=== PATIENT | female | born 1995 | race Caucasian/White ===

== ENCOUNTER 2022-03-21 06:39 | Emergency (ER) | payer MEDICAID ==
[~2022-03-21] VITALS: Ht 170.2 cm; Wt 108.9 kg
[2022-03-21 06:45] VITALS: BP_SYST 142
--- NOTE | 2022-03-21 06:48 | NUR ---
Patient ambulated to bed 3 & connected to CM with CC sharp constant CP radiating to posterior neck since 0100 this am. Patient connected to CM.
--- NOTE | 2022-03-21 07:30 | NUR ---
RECEIVED PT FROM [facility]. PT BIB FRIEND WITH C/O C/P. EKG OBTAINED BY PRIOR SHIFT SHOWS NSR. PT STATES C/P IS 5/10 AT THIS TIME AND STATES SHE HAS RIGHT ARM NUMBNESS. PT IS AAOX4. ON R/A. DENIES N/V/D/C. SKIN WARM, INTACT, NO EDEMA. PERIPHERAL PULSES NORMAL. PT HAS RAC 20G IN PLACE, BLOOD DRAWN BY NOC SHIFT RN AND TAKEN TO LAB. MADE AWARE PAIN MEDICATION IS NEEDED. SIDERAILS UP X2.
[2022-03-21 07:31] LABS: BASOPHILS % (AUTO) 0.7 % (0.0-2.0); EOSINOPHILS % (AUTO) 0.4 % (0.0-4.0); HEMATOCRIT 38.1 % (36-48); HEMOGLOBIN 13.3 g/dL (12.0-16.0); LYMPHOCYTES # (AUTO) 2.7 K/uL (1.0-5.5); LYMPHOCYTES % (AUTO) 37.6 % (20.5-51.5); MEAN CORPUSCULAR HEMOGLOBIN 30 pg (27-31); MEAN CORPUSCULAR HGB CONC 35 % (32-36); MEAN CORPUSCULAR VOLUME 85 fL (79.0-98.0); MONOCYTES # (AUTO) 0.4 K/uL (0.0-1.0); MONOCYTES % (AUTO) 5.8 % (1.7-9.3); NEUTROPHILS % (AUTO) 55.5 % (40.0-70.0); PLATELET COUNT (AUTO) 238 K/uL (130-430); RED BLOOD CELL COUNT(AUTO) 4.49 MIL/uL (4.2-6.2); RED CELL DISTRIBUTION WIDTH 12.8 % (9.0-15.0); WHITE BLOOD COUNT (AUTO) 7.1 K/uL (4.8-10.8)
[2022-03-21 07:42] LABS: ANION GAP 7 (5-15); CALCIUM 9.3 mg/dL (8.4-11.0); CHLORIDE 105 mmol/L (98-107); CREATININE 0.72 mg/dL (0.55-1.30); GLUCOSE 94 mg/dL (70-99); UREA NITROGEN, BLOOD 13 mg/dL (8-21)
[2022-03-21] MEDS ORDERED: MORPHINE 4 MG INJ. 4 MG/ML VIAL IVP ONE (07:45)
[2022-03-21 07:51] LABS: ALANINE AMINOTRANSFERASE 16 U/L (12-78); ALBUMIN 3.4 g/dL (3.4-4.8); ASPARTATE AMINOTRANSFERASE 17 U/L (10-37); TOTAL BILIRUBIN 0.3 mg/dL (0.0-1.0)
[2022-03-21 07:57] LABS: GFR AFRICAN AMERICAN 125 mL/min (>90)
--- NOTE | 2022-03-21 08:21 | NUR ---
PT HAS C/O C/P 11/11. MORPHINE 4MG IVP GIVEN. PT REPOSITIONED FOR COMFORT.
[2022-03-21 11:13] VITALS: BP_SYST 99
--- NOTE | 2022-03-21 11:14 | NUR ---
Patient given written and verbal discharge instructions and verbalizes understanding. ER MD discussed with patient the results and treatment provided. Patient in stable condition. ID arm band removed. IV catheter removed intact and dressing applied, no active bleeding. Patient educated on pain management and to follow up with PMD. Pain Scale O/10. Opportunity for questions provided and answered. Medication side effect fact sheet provided.
== END 2022-03-21 10:53 | disposition home or self-care (01) ==
LOC: SED 06:39
DX: R07.9 Chest pain, unspecified (principal); R20.2 Paresthesia of skin; R06.02 Shortness of breath; Z79.899 Other long term (current) drug therapy
CPT/HCPCS: 99284; 96374; 80053; 83880; 85025; 84484; 36415; 93005; J2270

== ENCOUNTER 2022-08-04 23:42 | Emergency (ER) | payer MEDICAID ==
[~2022-08-04] VITALS: Ht 170.2 cm; Wt 108.9 kg
[2022-08-05 00:02] VITALS: BP_SYST 138
== END 2022-08-05 01:48 | disposition home or self-care (01) ==
LOC: SED 23:42
DX: R05.9 Cough, unspecified (principal); Z88.8 Allergy status to other drugs, medicaments and biological substances; Z79.899 Other long term (current) drug therapy; Z20.822 Contact with and (suspected) exposure to COVID-19
CPT/HCPCS: 36415; 71045; 99284

== ENCOUNTER 2022-11-28 22:19 | Emergency (ER) | payer MEDICAID ==
[~2022-11-28] VITALS: Ht 170.2 cm; Wt 109.8 kg
[2022-11-28 22:26] VITALS: BP_SYST 141; PULSE 104; RESP 16; TEMP 97.9; O2SAT 96
[2022-11-28] MEDS ORDERED: MAG-AL HYDROX/SIMETH 30 ML UDC PO ONE (23:15)
[2022-11-28] MEDS ORDERED: FAMOTIDINE 20 MG TABLET PO ONE (23:15)
[2022-11-28] MEDS ORDERED: ALBUTEROL SULFATE 0.083% 2.5 MG/3 ML VIAL.NEB INH ONE (23:15)
[2022-11-29 00:35] LABS: BASOPHILS % (AUTO) 0.4 % (0.0-2.0); EOSINOPHILS # (AUTO) 0.1 K/uL (0.0-0.4); EOSINOPHILS % (AUTO) 0.6 % (0.0-4.0); HEMATOCRIT 37.7 % (36-48); HEMOGLOBIN 12.8 g/dL (12.0-16.0); LYMPHOCYTES # (AUTO) 2.7 K/uL (1.0-5.5); LYMPHOCYTES % (AUTO) 24.7 % (20.5-51.5); MEAN CORPUSCULAR HEMOGLOBIN 29 pg (27-31); MEAN CORPUSCULAR HGB CONC 34 % (32-36); MEAN CORPUSCULAR VOLUME 84 fL (79.0-98.0); MONOCYTES # (AUTO) 0.6 K/uL (0.0-1.0); MONOCYTES % (AUTO) 5.6 % (1.7-9.3); NEUTROPHILS # (AUTO) 7.5 K/uL (1.8-7.7); NEUTROPHILS % (AUTO) 68.7 % (40.0-70.0); PLATELET COUNT (AUTO) 268 K/uL (130-430); RED BLOOD CELL COUNT(AUTO) 4.48 MIL/uL (4.2-6.2); RED CELL DISTRIBUTION WIDTH 12.9 % (9.0-15.0); WHITE BLOOD COUNT (AUTO) 10.9 K/uL (4.8-10.8)
[2022-11-29 00:51] LABS: ANION GAP 6 (5-15); CALCIUM 9.2 mg/dL (8.4-11.0); CHLORIDE 103 mmol/L (98-107); GFR AFRICAN AMERICAN 85 mL/min (>90); GLUCOSE 80 mg/dL (74-106); UREA NITROGEN, BLOOD 17 mg/dL (8-21)
[2022-11-29 00:58] LABS: ALANINE AMINOTRANSFERASE 13 U/L (12-78); ALBUMIN 3.3 g/dL (3.4-4.8); ASPARTATE AMINOTRANSFERASE 12 U/L (10-37); TOTAL BILIRUBIN 0.3 mg/dL (0.0-1.0)
[2022-11-29] MEDS ORDERED: iohexoL 350 mgI/mL, 100 ML INFUS..BTL IV ONE (01:38)
[2022-11-29] MEDS ORDERED: KETOROLAC TROMETHAMINE 30 MG VIAL IVP ONE (03:00)
[2022-11-29] MEDS ORDERED: AZIT-93 PO (04:20)
[2022-11-29] MEDS ORDERED: ALBMDI INH (04:20)
[2022-11-29 04:32] VITALS: BP_SYST 134; PULSE 104; RESP 16; TEMP 97.9; O2SAT 96
== END 2022-11-29 04:31 | disposition home or self-care (01) ==
LOC: SED 22:19
DX: J20.9 Acute bronchitis, unspecified (principal); R07.2 Precordial pain; R06.02 Shortness of breath; J44.9 Chronic obstructive pulmonary disease, unspecified; Z88.8 Allergy status to other drugs, medicaments and biological substances; Z79.899 Other long term (current) drug therapy
CPT/HCPCS: 80053; 83880; 85025; 85379; 84484; 36415; 71046; 94640; 99285; 71275; 76376; 96374; J7613; Q9967; J1885